=== PATIENT | male | born 1955 | race Caucasian/White ===

== ENCOUNTER 2018-01-18 11:00 | Inpatient (IN) | payer OTHER, MEDICARE ==
[~2018-01-18] VITALS: Ht 175.3 cm; Wt 95.0 kg
[~2018-01-18 11:00] MED LIST: AMLODIPINE5 MG PO; AMOXICILLIN500 MG PO; ATENOLOL100 MG PO; ATIVAN1 MG OR; BAC OT; CLONAZEPAM1 MG PO; FLEXERIL10 MG PO; FLONASE NASAL50 MCG; FLUARIX QUADRIV1 IN1 IM; FLUARIX QUADRIV1 IN2 IM; METHADONE10 M1 OR; METHADONE10 M1 PO; NEO OT; PERCOCET 10/31 COMBO PO; PERCOCET 5/325M1 TAB PO; POLY OT; PRAVASTATIN40 MG PO; TENEX1 MG PO; [UNRECOGNIZED DRUG - OTHER] OR
[2018-01-19] MEDS ORDERED: MORPHINE SUL15 MG PO (15:24)
[2018-01-19] MEDS ORDERED: CYCLOBENZAPR10 MG PO (15:24)
[2018-01-19] MEDS ORDERED: CLONAZEPAM1 M1 PO (15:26)
[2018-01-19] MEDS ORDERED: AMLODIPINE5 MG PO (15:26)
[2018-01-19] MEDS ORDERED: OXYCODONE HYDROC5 MG (15:27)
[2018-01-19] MEDS ORDERED: STOOL SOFTNR PO (15:28)
[2018-01-22] VITALS (7 sets, daily range): BP systolic 138–146; BP diastolic 65–86
[2018-01-22 11:52] LABS: HEMATOCRIT 34.1 % (39.0-50.0); HEMOGLOBIN 11.6 g/dl (14.0-18.0); IMMATURE GRANULOCYTES 0.4 % (0.0-5.0); MEAN CELL VOLUME 87.7 fL CALC (80.0-100.0); MEAN CORPUSCULAR HGB 29.8 pG CALC (26.0-32.0); NEUT# 2.83 thou/uL (1.82-7.42); RED BLOOD COUNT 3.89 mill/uL (4.70-6.10); RED CELL DISTRI WIDTH 13.2 % (11.5-15.5)
[2018-01-22 12:12] LABS: ALBUMIN 3.6 g/dL (3.2-5.0); ALKALINE PHOSPHATASE 73 u/l (38-126); ANION GAP 12 (6-22 (CALC)); BILIRUBIN, TOTAL 0.4 mg/dL (0.0-1.4); BUN 10 mg/dL (8-23); BUN/CREATININE RATIO 15 (12-20 (CALC)); CARBON DIOXIDE 26 mmol/l (22-30); CHLORIDE 109 mmol/l (95-108); CREATININE 0.7 mg/dL (0.7-1.3); GFR > 60 ML/MIN (>=60 (CALC)); GFR FOR AFR.AMER. > 60 ML/MIN (>=60 (CALC)); POTASSIUM 3.7 mmol/l (3.5-5.1); SGOT/AST 26 u/l (19-48); SODIUM 143 mmol/l (137-146); TOTAL PROTEIN 6.1 g/dL (6.3-8.2)
--- NOTE | 2018-01-22 15:30 | NUR ---
PT CAME FROM OR VIA BED BY DAVID AND REPORT RECEIVED. PT IS TRYING TO USE THE URINAL TO VOID. IN ROOM. AWAKE OVERNIGHT COUNSELOR IN ROOM TO OBTAIN VS. SCD IN PLACE.
--- NOTE | 2018-01-22 15:58 | NUR ---
BLADDER SCAN SHOWS 875ML OF URINE, PT STATED TO PUT A OLIVARES IN; DISCUSSED MATTER WITH RAGHU FAYE, SHE OKED AN INDWELLING CATHHETER TO BE INSERTED.
--- NOTE | 2018-01-22 16:15 | NUR ---
#16 INDWELLING CATHETER INSERTED WITH EASE; OLIVARES SECURE WITH LEG STRAP WHICH IS ATTACHED TO R LEG; 1200CC OF CLEAR YELLOW URINE EMPTIED AND STILL DRAINING INTO OLIVARES BAG.
--- NOTE | 2018-01-22 17:30 | NUR ---
PT ALERT ORIENTED X3, RESP EVEN & UNLABORED; R SHOULDER SURGERY, ARM SECURE IN SLING; AT BED SIDE; ICE PACK APPLIED TO AREA KEPT COMPLAINING OF PAIN BEFORE AND AFTER BEING MEDICATED WITH PERCOCET; PT SAID HE WANTS SOMETHING STRONGER; PT UNHAPPY AND KEEPS COMPLAINING. #22 LAC PATENT; LUNGS CLEAR, SCD BLAT LEGS; EDUCATED ON INCENTIVE SPIROMETRY; SAFETY PRECAUTION REINFORCED; BED IN LOW LOCKED POSITION, CALL LIGHT IN REACH. WILL CONTINUE TO MONITOR.
--- NOTE | 2018-01-22 18:25 | NUR ---
PT DEMANDING TO SPEAK WITH DR BRYAN REGARDING PAIN MEDS, RAGHU FAYE SPOKE WITH PT REGARDING PAIN MEDS AND THAT SHE WOULD CONTACT THE DRS; PT GOT ANGRY AND STATED THAT HE'S GOING HOME; PRESENT. YUNIER KRISHNAMURTHY WILL GET BACK TO US AFTER SHE SPEAKS WITH THE DRS. CADENA AT TO ASSIST PT TO THE RESTROOM. WILL CONTINUE TO MONITOR.
--- NOTE | 2018-01-22 18:45 | NUR ---
RAGHU WOODS CALLED MAYNOR STRAUSS.
[2018-01-23] VITALS (7 sets, daily range): BP systolic 116–155; BP diastolic 71–92
--- NOTE | 2018-01-23 02:50 | NUR ---
PATIENT RESTING IN BED WITH AT BEDSIDE. RIGHT SHOULDER IN SLING AND ELEVATED ON PILLOW. CMS TO FINGERS WNL. PATIENT WITH C/O POST-OP RIGHT SHOULDER PAIN 7/10 ON PAIN SCALE. PATIENT MEDICATED WITH PERCOCET 10/325MG TABS 2 FOR C/O PAIN. PATIENT CONT TO HAVE HIGH ANXIETY EVEN WITH PAIN MEDS. OLIVARES IS PATENT AND DRAINING CLEAR YELLOW URINE. IV SITE TO LEFT AC INTACT WITH IVF LR PATENT AND INFUSING AT 100CC/HR. SITE REMAINS HEALTHY AT THIS TIME. SAFETY PRECAUTIONS REINFORCED. CALL LIGHT IN REACH. WILL CONT TO MONITOR.
--- NOTE | 2018-01-23 04:42 | NUR ---
PATIENT RESTING ON THE SIDE OF THE BED INSISTING THAT THE OLIVARES CATH BE TAKEN. PATIENT ASSISTED BACK TO THE BED AND OLIVARES CATH REMOVED REQUESTED. PATIENT WITH MULTIPLE COMPLAINTS INCLUDING WHY THE DOCTOR DID NOT COME TO SEE HIM AFTER SURGERY OR LAST NIGHT. WANTS DOCTOR CALLED AND WANTS TO GO HOME. EXPLAINED TO THE PATIENT THAT THE DOCTOR WILL BE IN THIS MORNING FOR FURTHER INSTRUCTIONS AND THAT THERE IS NO EMERGENT SITUATION AT THIS TIME TO CALL THE DOCTOR. PATIENT INFORMED THAT HE CAN LEAVE AND OFFERED AMA PAPER TO THE PATIENT. RESTING IN BED AT THIS TIME WITH AT BEDSIDE, SAFETY PRECAUTIONS REINFORCED. CALL LIGHT IN REACH. WILL CONT TO MONITOR.
[2018-01-23 05:33] LABS: HEMATOCRIT 37.7 % (39.0-50.0); HEMOGLOBIN 12.6 g/dl (14.0-18.0)
--- NOTE | 2018-01-23 06:33 | NUR ---
PATIENT C/O RIGHT SHOULDER PAIN-7/10 ON PAIN SCALE. TOO EARLY FOR PERCOCET. DILAUDID 2MG IVP AND ZOFRAN 4MG IVP FOR NAUSEA GIVEN. IVF D/C AND IV SITE SALINE LOCK. REMAINS AT BEDSIDE. CALL LIGHT IN REACH. WILL CONT TO MONITOR.
--- NOTE | 2018-01-23 07:15 | NUR ---
REPORT RECEIVED BY MATI. ASSISTED PT TO SITTING IN THE SIDE OF THE BED. CALL LIGHT IN REACH.
--- NOTE | 2018-01-23 07:58 | NUR ---
PT IS SITTING IN THE SIDE OF THE BED. SAMAN FROM OR IN ROOM. PT DEMANDING HE WANTS A TYLENOL. EXPLAIN TO PT THAT I NEED TO GET AN ORDER . I STATED I COULD GAVE HIM A PERCOCET. PT STATED FINE BUT HE WANTED THE PERCOCET 2 COMBO. MEDICATED PT WITH PERCOCET SEE EMAR. PT STATED HE IS WAITING FOR THE DOCTORS. ASSESSMENT DONE RESPS EVEN AND UNLABORED. RIGHT SHOULDER IS IN SLING AND DCDI. PT STATED HE TOOK HIS HOME MEDICATIONS ATENOLOL AND NORVASC IN THE AM. IN ROOM. EXPLAIN TO PT WE MUST KNOW WHAT MEDICATIONS HE IS TAKING AND NOT TO TAKE ANY MORE OF HIS HOME MEDICATIONS. PT VERBALIZED UNDERSTAING. SAFETY PRECAUTIONS REINFORCED AND CALL LIGHT IN REACH.
--- NOTE | 2018-01-23 09:15 | NUR ---
PT IS STANDING IN THE SIDE OF THE DOOR. DEMANDING HE WANTS TYLENOL. TOLD PT I WILL NOTIFIED RAGHU WOODS. PT FOLLOWED ME TO THE DICTATION ROOM TO NOTIFIED RAGHU. ORDERS RECEIVED.
--- NOTE | 2018-01-23 10:35 | NUR ---
DR. CHOI AND RAGHU WOODS IN ROOM TO ASSESS PT. PT STATING HIS CONCERNS RE: POC. MD STATED WILL FOLLOW UP WITH CASE MANAGEMENT. MD AND RAGHU LEFT THE ROOM AND PT FOLLOW THEM TO THE NEXT ROOM. 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 AMA PAPER READY FOR HIM TO SIGN. PT STATED NO I WANT TO SPEAK TO YOUR GUT CLEANER. WIFEN IN ROOM. CALL LIGHT IN REACH.
--- NOTE | 2018-01-23 10:50 | NUR ---
EL IN ROOM TO SPEAK TO PT AND . PT EXPLAINING HIS CONCERNS.
--- NOTE | 2018-01-23 11:10 | NUR ---
DOUG FROM CASE MANAGEMENT IN ROOM AT THIS TIME.
[2018-01-23] MEDS ORDERED: PERCOCET 10/31 COMBO PO (12:20)
[2018-01-23] MEDS ORDERED: NARCAN4 MG/0.1 M (12:20)
--- NOTE | 2018-01-23 12:58 | NUR ---
Discharge instructions given. Patient verbalizes understanding of same. Discharged in stable condition via Wheelchair to Home with spouse. All belongings sent with pt.
== END 2018-01-23 13:00 | disposition home or self-care (01) | DRG 483 ==
LOC: MS2 01-22 09:01
PROVIDERS: ADMIT Orthopaedic Surgery; ATTEND Orthopaedic Surgery
PROC: 0RRJ00Z Replacement of Right Shoulder Joint with Reverse Ball and Socket Synthetic Substitute, Open Approach (ICD-10-PCS; principal; 2018-01-22)
PROC: 0LS30ZZ Reposition Right Upper Arm Tendon, Open Approach (ICD-10-PCS; 2018-01-22)
PROC: 3E0T3BZ Introduction of Anesthetic Agent into Peripheral Nerves and Plexi, Percutaneous Approach (ICD-10-PCS; 2018-01-22)
DX: M75.121 Complete rotator cuff tear or rupture of right shoulder, not specified as traumatic (principal); M19.011 Primary osteoarthritis, right shoulder; S46.211A Strain of muscle, fascia and tendon of other parts of biceps, right arm, initial encounter; I10 Essential (primary) hypertension; E78.5 Hyperlipidemia, unspecified; G89.4 Chronic pain syndrome; F43.10 Post-traumatic stress disorder, unspecified; X58.XXXA Exposure to other specified factors, initial encounter; Z91.14 Patient's other noncompliance with medication regimen; Z87.820 Personal history of traumatic brain injury; Z01.818 Encounter for other preprocedural examination; Z90.49 Acquired absence of other specified parts of digestive tract; Z98.890 Other specified postprocedural states; Z97.2 Presence of dental prosthetic device (complete) (partial)
CPT/HCPCS: J2710

== ENCOUNTER → 2018-01-19 | Outpatient (REF) | payer OTHER, MEDICARE ==
[~2018-01-19] VITALS: Ht 175.3 cm; Wt 95.3 kg
[~2018-01-19] MED LIST changes: +CLONAZEPAM1 M1 PO; +CYCLOBENZAPR10 MG PO; +MORPHINE SUL15 MG PO; +NARCAN4 MG/0.1 M; +OXYCODONE HYDROC5 MG; +STOOL SOFTNR PO
[2018-01-19 15:43] VITALS: BP 153/103
== END | disposition home or self-care (01) | DRG 951 ==
LOC: ORM 01-18 11:00 → PO 12:05 → ORM 12:30
PROVIDERS: ATTEND Orthopaedic Surgery
DX: Z01.818 Encounter for other preprocedural examination (principal); M75.121 Complete rotator cuff tear or rupture of right shoulder, not specified as traumatic; I10 Essential (primary) hypertension; E78.00 Pure hypercholesterolemia, unspecified; F43.10 Post-traumatic stress disorder, unspecified; Z90.49 Acquired absence of other specified parts of digestive tract; Z98.890 Other specified postprocedural states; Z97.2 Presence of dental prosthetic device (complete) (partial)

== ENCOUNTER → 2018-06-04 | Outpatient (REF) | payer OTHER, MEDICARE | END | disposition home or self-care (01) | DRG 561 | LOC: DI 13:19 | PROVIDERS: ATTEND Orthopaedic Surgery | DX: Z47.1 Aftercare following joint replacement surgery (principal); Z96.611 Presence of right artificial shoulder joint ==

== ENCOUNTER 2022-12-16 19:11 | Emergency (ER) | payer OTHER, MEDICARE ==
[2022-12-16] VITALS (7 sets, daily range): BP systolic 115–137; BP diastolic 73–84
[~2022-12-16] VITALS: Ht 175.3 cm; Wt 63.0 kg
[2022-12-16 20:02] LABS: BASO% 0.6 % (0-3); HEMATOCRIT 34.1 % (39.0-50.0); HEMOGLOBIN 10.9 g/dl (14.0-18.0); IMMATURE GRANULOCYTES 1.5 % (0.0-5.0); LYMPH% 6.6 % (15-41); MEAN CELL VOLUME 99.4 fL CALC (80.0-100.0); MEAN CORPUSCULAR HGB 31.8 pG CALC (26.0-32.0); MONO% 13.9 % (2-13); NEUT# 3.61 thou/uL (1.82-7.42); NEUT% 77.4 % (42-76); RED BLOOD COUNT 3.43 mill/uL (4.70-6.10); RED CELL DISTRI WIDTH 15.5 % (11.5-15.5)
[2022-12-16 20:14] LABS: ALBUMIN 3.7 g/dL (3.2-5.0); ALKALINE PHOSPHATASE 87 u/l (38-126); ANION GAP 9 (6-22 (CALC)); BILIRUBIN, TOTAL 1.4 mg/dL (0.2-1.3); BUN 7 mg/dL (8-23); BUN/CREATININE RATIO 11 (12-20 (CALC)); CARBON DIOXIDE 30 mmol/l (22-30); CHLORIDE 98 mmol/l (95-108); CREATININE 0.6 mg/dL (0.7-1.3); GFR FOR AFR.AMER. > 60 ML/MIN (>=60 (CALC)); GFR OTHER RACES > 60 ML/MIN (>=60 (CALC)); POTASSIUM 3.1 mmol/l (3.5-5.1); SGOT/AST 52 u/l (19-48); SODIUM 134 mmol/l (137-146); TOTAL PROTEIN 6.7 g/dL (6.3-8.2)
[2022-12-16 21:12] LABS: URINE BILIRUBIN - DIPSTICK Negative (NEGATIVE); URINE BLOOD DIPSTICK Small (NEGATIVE); URINE GLUCOSE - DIPSTICK Negative (NEGATIVE); URINE KETONE 15 mg/dL (NEGATIVE); URINE LEUK ESTERASE Negative (NEGATIVE); URINE NITRITE - DIPSTICK Negative (Negative); URINE PH 7.5 (4.5-8.0); URINE PROTEIN - DIPSTICK Negative (NEG-TRACE); URINE SPECIFIC GRAVITY 1.015; URINE UROBILINOGEN - DIPSTICK 0.2 E.U./dL (0.2)
[2022-12-16 21:13] LABS: URINE COLOR Yellow
[2022-12-16 21:19] LABS: URINE RBC 0-2 RBC/hpf (0-5)
[2022-12-17] VITALS: BP 126/72
[2022-12-17 00:12] VITALS: BP 126/72
== END 2022-12-17 00:17 | disposition short-term general hospital (02) | DRG 194 ==
LOC: ED 19:11
PROVIDERS: Emergency Medicine
DX: J18.9 Pneumonia, unspecified organism (principal); J91.8 Pleural effusion in other conditions classified elsewhere; E87.6 Hypokalemia; I10 Essential (primary) hypertension; C90.01 Multiple myeloma in remission; Z20.822 Contact with and (suspected) exposure to COVID-19